=== PATIENT | male | born 1940 | race Caucasian/White ===

== ENCOUNTER → 2018-02-27 08:11 | Outpatient (CLI) | payer MEDICARE, SELFPAY ==
[2018-02-27 09:06] LABS: Alanine Aminotransferase 48 IU/L (21-72); Albumin 4.3 g/dL (3.5-5.0); Albumin Globulin Ratio 1.6 (1.0-2.8); Alkaline Phosphatase 85 U/L (38-126); Aspartate Aminotransferase 32 IU/L (17-59); BUN Creatinine Ratio 21.1 (6-22); Bilirubin Total 0.4 mg/dL (0.2-1.3); Blood Urea Nitrogen 19 mg/dL (9-20); Calcium 9.3 mg/dL (8.4-10.2); Carbon Dioxide 26 mmol/L (22-32); Chloride 104 mmol/L (98-107); Cholesterol 154 mg/dL (140-199); Estimated Glomerular Filt Rate > 60.0 mL/min (>60); Globulin 2.7 g/dL (1.7-4.1); Glucose 124 mg/dL (80-110); HDL Cholesterol 37 mg/dL (40-60); HEMOLYSIS < 15 (0-50); LDL Cholesterol Calculated 82 mg/dL (<100); Potassium 4.6 mmol/L (3.4-5.1); Sodium 139 mmol/L (137-145); Triglycerides 174 mg/dL (35-150)
[2018-02-27 09:35] LABS: Prostate Specific Antigen Scrn 2.26 ng/mL (0.1-4.0)
[2018-02-27 10:16] LABS: Creatinine Urine Random 106.3 mg/dL
[2018-02-27 10:21] LABS: Microalbumi Creatinin Ratio Ur 74.3 ug/mg CR (<30); Microalbumin Urine Random 7.9 mg/dL (0-1.6)
== END ==
PROVIDERS: Visit Provider Physician Assistant
DX: E78.5 Hyperlipidemia, unspecified (principal); I10 Essential (primary) hypertension; Z12.5 Encounter for screening for malignant neoplasm of prostate
CPT/HCPCS: 36415; 80053; 80061; 82043; 82570; G0103

== ENCOUNTER → 2018-03-01 09:08 | Outpatient (CLI) | payer MEDICARE, SELFPAY ==
[2018-03-01 21:23] LABS: Uric Acid 6.7 mg/dL (3.5-8.5)
== END ==
PROVIDERS: PCP Family Medicine; Visit Provider Physician Assistant
DX: E78.2 Mixed hyperlipidemia (principal); R73.01 Impaired fasting glucose; R80.9 Proteinuria, unspecified
CPT/HCPCS: 84550

== ENCOUNTER → 2018-04-05 09:36 | Outpatient (CLI) | payer MEDICARE, SELFPAY | PROVIDERS: PCP Physician Assistant; Visit Provider Physician Assistant | DX: Z12.11 Encounter for screening for malignant neoplasm of colon (principal) | CPT/HCPCS: 82274 ==

== ENCOUNTER → 2018-06-07 07:59 | Outpatient (CLI) | payer MEDICARE, SELFPAY ==
[2018-06-07 09:30] LABS: Blood Urea Nitrogen 16 mg/dL (9-20); Carbon Dioxide 25 mmol/L (22-32); Chloride 103 mmol/L (98-107); Cholesterol 175 mg/dL (140-199); Estimated Glomerular Filt Rate > 60.0 mL/min (>60); Glucose 130 mg/dL (80-110); HDL Cholesterol 43 mg/dL (40-60); HEMOLYSIS 15 (0-50); LDL Cholesterol Calculated 97 mg/dL (<100); Potassium 4.3 mmol/L (3.4-5.1); Sodium 137 mmol/L (137-145); Triglycerides 177 mg/dL (35-150)
[2018-06-07 09:32] LABS: Hemoglobin A1C% w Est Avg Glu 5.8 % (4.0-6.0)
[2018-06-07 09:56] LABS: Microalbumi Creatinin Ratio Ur 131.7 ug/mg CR (<30); Microalbumin Urine Random 16.2 mg/dL (0-1.6)
== END ==
PROVIDERS: PCP Physician Assistant; Visit Provider Physician Assistant
DX: E78.1 Pure hyperglyceridemia (principal); I10 Essential (primary) hypertension; R73.01 Impaired fasting glucose
CPT/HCPCS: 36415; 80048; 80061; 82043; 82570; 83036

== ENCOUNTER → 2018-09-09 08:55 | Outpatient (CLI) | payer MEDICARE, SELFPAY ==
[2018-09-09 11:51] LABS: Creatinine Urine Random 121.8 mg/dL
[2018-09-09 11:54] LABS: Microalbumi Creatinin Ratio Ur 82.9 ug/mg CR (<30); Microalbumin Urine Random 10.1 mg/dL (0-1.6)
== END ==
PROVIDERS: PCP Physician Assistant; Visit Provider Physician Assistant
DX: I10 Essential (primary) hypertension (principal)
CPT/HCPCS: 82043; 82570

== ENCOUNTER → 2018-12-29 07:52 | Outpatient (CLI) | payer MEDICARE, SELFPAY ==
[2018-12-29 08:29] LABS: Hemoglobin A1C% w Est Avg Glu 5.8 % (4.0-6.0)
[2018-12-29 09:00] LABS: Alanine Aminotransferase 35 IU/L (<50); Albumin 4.3 g/dL (3.5-5.0); Albumin Globulin Ratio 1.8 (1.0-2.8); Alkaline Phosphatase 76 U/L (38-126); Aspartate Aminotransferase 33 IU/L (17-59); Bilirubin Total 0.6 mg/dL (0.2-1.3); Blood Urea Nitrogen 17 mg/dL (9-20); Calcium 9.4 mg/dL (8.4-10.2); Carbon Dioxide 26 mmol/L (22-32); Chloride 105 mmol/L (98-107); Cholesterol 167 mg/dL (140-199); Estimated Glomerular Filt Rate > 60.0 mL/min (>60); Globulin 2.4 g/dL (1.7-4.1); Glucose 129 mg/dL (80-110); HDL Cholesterol 42 mg/dL (40-60); HEMOLYSIS < 15 (0-50); LDL Cholesterol Calculated 97 mg/dL (<100); Potassium 4.8 mmol/L (3.4-5.1); Sodium 139 mmol/L (137-145); Total Protein 6.7 g/dL (6.3-8.2); Triglycerides 138 mg/dL (35-150)
== END ==
PROVIDERS: PCP Physician Assistant; Visit Provider Physician Assistant
DX: E78.1 Pure hyperglyceridemia (principal); I10 Essential (primary) hypertension; R73.01 Impaired fasting glucose
CPT/HCPCS: 36415; 80053; 80061; 83036

== ENCOUNTER → 2019-10-12 06:55 | Outpatient (CLI) | payer MEDICARE, SELFPAY ==
[2019-10-12 08:49] LABS: Alanine Aminotransferase 32 IU/L (<50); Albumin Globulin Ratio 1.3 (1.0-2.8); Alkaline Phosphatase 86 U/L (38-126); Aspartate Aminotransferase 35 IU/L (17-59); BUN Creatinine Ratio 18.6 (6-22); Bilirubin Total 0.7 mg/dL (0.2-1.3); Blood Urea Nitrogen 18 mg/dL (9-20); Calcium 8.9 mg/dL (8.4-10.2); Carbon Dioxide 27 mmol/L (22-32); Chloride 104 mmol/L (98-107); Estimated Glomerular Filt Rate > 60.0 mL/min (>60); Glucose 129 mg/dL (80-110); HEMOLYSIS < 15 (0-50); Potassium 4.2 mmol/L (3.4-5.1); Sodium 137 mmol/L (137-145)
[2019-10-14 14:15] LABS: Cholesterol 154 mg/dL (140-199); HDL Cholesterol 39 mg/dL (40-60); LDL Cholesterol Calculated 99 mg/dL (<100); Triglycerides 79 mg/dL (35-150)
== END ==
PROVIDERS: PCP Registered Nurse Diabetes Educator; Referring Provider Registered Nurse Diabetes Educator; Visit Provider Registered Nurse Diabetes Educator
DX: E78.1 Pure hyperglyceridemia (principal); I10 Essential (primary) hypertension; E11.9 Type 2 diabetes mellitus without complications
CPT/HCPCS: 36415; 80053; 80061

== ENCOUNTER → 2019-12-09 06:58 | Outpatient (CLI) | payer MEDICARE, SELFPAY ==
[2019-12-09 08:43] LABS: Add Manual Diff / Slide Review NO; Basophils Absolute Auto 0 /uL (0-100); Basophils Percent Auto 0.5 % (0-2); Eosinophils Absolute Auto 200 /uL (0-450); Eosinophils Percent Auto 2.7 % (2-4); Hematocrit 41.4 % (41-53); Hemoglobin 14.3 g/dL (13.5-17.5); Lymphocytes Absolute Auto 1900 /uL (1100-4500); Mean Corpuscular HGB Conc 34.5 % (30-36); Mean Corpuscular Volume 92.8 fL (80-100); Monocytes Absolute Auto 700 /uL (0-900); Monocytes Percent Auto 9.7 % (3-14); Neutrophils Absolute Auto 4200 /uL (1500-7000); Neutrophils Percent Auto 60.1 % (50-75); Platelet Count 290 X10^3/uL (150-400); Red Blood Cell Count 4.46 X10^6/uL (4.5-5.9); Red Cell Distribution Width 12.3 % (11.6-14.8)
[2019-12-09 09:47] LABS: TSH w/ Reflex to FT4 1.93 uIU/mL (0.47-4.68)
[2019-12-09 10:00] LABS: Creatinine Urine Random 124.6 mg/dL
[2019-12-09 10:04] LABS: Microalbumi Creatinin Ratio Ur 37.7 ug/mg CR (<30); Microalbumin Urine Random 4.7 mg/dL (0-1.6)
[2019-12-12 13:06] LABS: Fecal Immunochemical Test Negative (Negative)
== END ==
PROVIDERS: PCP Registered Nurse Diabetes Educator; Referring Provider Registered Nurse Diabetes Educator; Visit Provider Registered Nurse Diabetes Educator
DX: Z12.11 Encounter for screening for malignant neoplasm of colon (principal); E11.9 Type 2 diabetes mellitus without complications; I10 Essential (primary) hypertension
CPT/HCPCS: 36415; 82043; 82274; 82570; 83036; 84443; 85025

== ENCOUNTER → 2020-01-12 11:48 | Outpatient (CLI) | payer MEDICARE, SELFPAY ==
[2020-01-12 12:50] LABS: Add Manual Diff / Slide Review NO; Basophils Absolute Auto 0 /uL (0-100); Basophils Percent Auto 0.3 % (0-2); Eosinophils Absolute Auto 100 /uL (0-450); Eosinophils Percent Auto 0.9 % (2-4); Hematocrit 40.9 % (41-53); Hemoglobin 14.3 g/dL (13.5-17.5); Lymphocytes Absolute Auto 1600 /uL (1100-4500); Lymphocytes Percent Auto 14.8 % (25-40); Mean Corpuscular HGB Conc 34.9 % (30-36); Mean Corpuscular Hemoglobin 32.1 PG (26-34); Monocytes Absolute Auto 1000 /uL (0-900); Monocytes Percent Auto 8.8 % (3-14); Neutrophils Absolute Auto 8300 /uL (1500-7000); Neutrophils Percent Auto 75.2 % (50-75); Platelet Count 287 X10^3/uL (150-400); Red Blood Cell Count 4.45 X10^6/uL (4.5-5.9); Red Cell Distribution Width 12.5 % (11.6-14.8); White Blood Cell Count 11.1 X10^3/uL (4.5-11.0)
[2020-01-12 13:09] LABS: Alanine Aminotransferase 26 IU/L (<50); Albumin 4.3 g/dL (3.5-5.0); Albumin Globulin Ratio 1.3 (1.0-2.8); Alkaline Phosphatase 75 U/L (38-126); Aspartate Aminotransferase 26 IU/L (17-59); BUN Creatinine Ratio 18.6 (6-22); Blood Urea Nitrogen 18 mg/dL (9-20); Calcium 9.4 mg/dL (8.4-10.2); Carbon Dioxide 29 mmol/L (22-32); Chloride 102 mmol/L (98-107); Estimated Glomerular Filt Rate > 60.0 mL/min (>60); Globulin 3.2 g/dL (1.7-4.1); Glucose 111 mg/dL (80-110); HEMOLYSIS < 15 (0-50); Potassium 4.7 mmol/L (3.4-5.1); Sodium 136 mmol/L (137-145); Total Protein 7.5 g/dL (6.3-8.2)
[2020-01-12 13:36] LABS: Prostate Specific Antigen 2.88 ng/mL (0.10-4.00)
== END ==
PROVIDERS: PCP Registered Nurse Diabetes Educator; Referring Provider Registered Nurse; Visit Provider Registered Nurse
DX: N40.1 Benign prostatic hyperplasia with lower urinary tract symptoms (principal); R39.198 Other difficulties with micturition
CPT/HCPCS: 36415; 80053; 84153; 85025; 87086

== ENCOUNTER 2020-05-14 10:02 | Emergency (ER) | payer MEDICARE, SELFPAY ==
[2020-05-14 10:04] VITALS: BP 213/97; PULSE 56; RESP 16; TEMP 36.5; O2SAT 99
--- NOTE | 2020-05-14 10:14 | DI.RAD.S_ITS ---
PROCEDURE: XR CHEST 1V INDICATIONS: chest pain TECHNIQUE: One view of the chest was acquired. COMPARISON: [facility], , CHEST 1 VIEW, 10/06/2016, 10:06. FINDINGS: Surgical changes and devices: Fusion hardware in lower cervical spine is seen. Lungs and pleura: Lungs are clear. No pleural effusions or pneumothorax. Mediastinum: Mild aortic arch calcification is seen. Heart size is enlarged. Bones and chest wall: Old healed right posterior 7th and 8th rib fractures are seen.. Overlying soft tissues appear unremarkable. IMPRESSION: No acute cardiopulmonary pathology. Old healed right posterior 7th and 8th rib fractures. Prior lower cervical spine fusion. Dictated by: Ian Hammond M.D. on 05/14/2020 at 10:37 Approved by: aIn Hammond M.D. on 05/14/2020 at 10:38
--- NOTE | 2020-05-14 10:22 | ED.GENADULT ---
HPI - General Adult General Chief complaint: Hypertension Stated complaint: Sent over by PCP for blood pressure check Time Seen by Provider: 05/14/20 10:13 Source: patient Mode of arrival: Ambulatory Limitations: no limitations History of Present Illness HPI narrative: Patient is a 79-year-old male with history of hypertension presenting with hypertension. He says he has been monitoring his blood pressure since the of the year taking it a couple times a week it is slowly been on the rise. His blood pressure usually is 150/80 however he has had multiple readings with systolic of 180 even 1 with a systolic of 200 is currently 213/97. He states he is completely asymptomatic and feels fine. He denies any headache chest pain shortness of breath numbness tingling or weakness nausea or vomiting. She has appointment with his PCP this afternoon in regards to his blood pressure. Related Data Home Medications Medication Instructions Recorded Confirmed multivitamin [Multiple Vitamins] 1 tab PO QDAY #0 09/03/10 05/14/20 omeprazole 20 mg PO QDAY #0 10/06/16 05/14/20 amlodipine 10 mg PO QPM 05/14/20 05/14/20 atenolol 50 mg PO QAM 05/14/20 05/14/20 ibuprofen-diphenhydramine HCl 1 cap PO BEDTIME 05/14/20 05/14/20 losartan 50 mg PO QPM 05/14/20 05/14/20 Allergies Allergy/AdvReac Type Severity Reaction Status Date / Time lisinopril AdvReac Intermediate Cough Verified 05/14/20 10:08 Review of Systems Review of Systems Narrative: GENERAL: Denies chills, fatigue, malaise, fever, sweats, travel HEENT: Denies sinus pain, ear pain, sore throat, difficulty swallowing, neck pain RESPIRATORY: Denies dyspnea, cough, wheezing, hemoptysis, sputum. CARDIOVASCULAR: Denies chest pain, palpitations, orthopnea, edema GASTROINTESTINAL: Denies nausea, vomiting, abdominal pain, diarrhea, constipation, melena. : Denies dysuria, frequency, incontinence, hematuria, urinary retention, flank pain. MUSCULOSKELETAL: Denies weakness, joint pain, or bony pain SKIN: No rash, no erythema, no pruritus NEUROLOGIC: Denies weakness, dizziness, headache, numbness, change in speech, confusion PSYCHIATRIC: No concerning psychosocial issues. 12 point review of systems is negative except for those stated above and HPI Patient History Medical History Diabetes mellitus type 2, diet-controlled Essential (primary) hypertension (02/26/15) Surgical History History of hip replacement History of hip replacement Status post knee surgery Family History Child Thyroid cancer Social History Smoking Status: Never smoker second hand exposure: No alcohol intake: current substance use type: does not use Smoking Status: Never smoker alcohol intake frequency: 0-2 drinks per day Substance Use Type: does not use Exam Initial Vital Signs Initial Vital Signs: Vital Signs Temperature 97.7 F 05/14/20 10:04 Pulse Rate 56 L 05/14/20 10:04 Respiratory Rate 16 05/14/20 10:04 Blood Pressure 213/97 H 05/14/20 10:04 Pulse Oximetry 99 05/14/20 10:04 GENERAL: Well-appearing, well-nourished and in no acute distress. HEENT: Head atraumatic,EOMI, pupils reactive, face symmetric, moist mucous membranes CARDIOVASCULAR: Regular rate and rhythm without murmurs, rubs or gallops. RESPIRATORY: Breath sounds equal bilaterally, no wheezes rales or rhonchi. ABDOMEN: Soft, nontender. Normoactive bowel sounds all 4 quadrants. No guarding or rebound. EXTREMITIES: Normal range of motion, no clubbing or edema. Neurovascularly intact NEUROLOGICAL: Alert and oriented x4.Normal gait and speech. Cranial nerves II through XII grossly intact. SKIN: Warm, dry, no laceration, no petechiae, no rashes or lesions. Course Orders Ordered: ED Orders 05/14/20 10:14 XR chest 1V Stat EKG-12 Lead Stat 05/14/20 10:26 Complete Blood Count AUTO DIFF Stat Comprehensive Metabolic Panel Stat Lipase Stat Troponin & CK Cardiac Panel Stat Vital Signs Vital signs: Vital Signs - 8 hr 05/14/20 10:04 05/14/20 11:00 05/14/20 11:30 Temperature 97.7 F Pulse Rate 56 L 48 L 45 L Respiratory Rate 16 14 15 Blood Pressure 213/97 H Pulse Oximetry 99 97 96 05/14/20 11:35 05/14/20 12:00 05/14/20 12:01 Temperature Pulse Rate 48 L 48 L 47 L Respiratory Rate 14 10 L 12 Blood Pressure 162/87 H 194/88 H Pulse Oximetry 94 97 97 Medical Decision Making Lab Data Lab results reviewed: Yes I reviewed the patient's lab results. Result diagrams: 05/14/20 10:26 05/14/20 10: Labs: Lab Results 05/14/20 05/14/20 Range/Units 10:26 10:26 WBC 8.1 (4.5-11.0) X10^3/uL RBC 4.42 L (4.5-5.9) X10^6/uL Hgb 14.3 (13.5-17.5) g/dL Hct 41.2 (41-53) % MCV 93.1 (80-100) fL MCH 32.4 (26-34) PG MCHC 34.8 (30-36) % RDW 13.2 (11.6-14.8) % Plt Count 299 (150-400) X10^3/uL Neut % (Auto) 63.4 (50-75) % Lymph % (Auto) 24.6 L (25-40) % [place] % (Auto) 9.0 (3-14) % Eos % (Auto) 2.2 (2-4) % Baso % (Auto) 0.8 (0-2) % Neut # (Auto) 5100 (5390-2858) /uL Lymph # (Auto) 2000 (3281-5525) /uL [place] # (Auto) 700 (0-900) /uL Eos # (Auto) 200 (0-450) /uL Baso # (Auto) 100 (0-100) /uL Sodium 137 (137-145) mmol/L Potassium 4.8 (3.4-5.1) mmol/L Chloride 103 (98-107) mmol/L Carbon Dioxide 26 (22-32) mmol/L BUN 19 (9-20) mg/dL Creatinine 0.97 (0.66-1.25) mg/dL Estimated GFR > 60.0 (>60) mL/min BUN/Creatinine Ratio 19.6 (6-22) Glucose 104 (80-110) mg/dL Calcium 9.4 (8.4-10.2) mg/dL Total Bilirubin 0.6 (0.2-1.3) mg/dL AST 29 (17-59) IU/L ALT 27 (<50) IU/L Alkaline Phosphatase 93 (38-126) U/L Total Creatine Kinase 70 (55-170) U/L CK-MB (CK-2) TNP CK-MB (CK-2) Rel Index TNP Troponin I < 0.012 (0.01-0.034) ng/mL Total Protein 7.5 (6.3-8.2) g/dL Albumin 4.4 (3.5-5.0) g/dL Globulin 3.1 (1.7-4.1) g/dL Albumin/Globulin Ratio 1.4 (1.0-2.8) Lipase 67 (23-300) U/L Imaging Data Chest x-ray: Radiologist's Impression: PROCEDURE: XR CHEST 1V INDICATIONS: chest pain TECHNIQUE: One view of the chest was acquired. COMPARISON: [facility], CHEST 1 VIEW, 10/06/2016, 10:06. FINDINGS: Surgical changes and devices: Fusion hardware in lower cervical spine is seen. Lungs and pleura: Lungs are clear. No pleural effusions or pneumothorax. Mediastinum: Mild aortic arch calcification is seen. Heart size is enlarged. Bones and chest wall: Old healed right posterior 7th and 8th rib fractures are seen.. Overlying soft tissues appear unremarkable. IMPRESSION: No acute cardiopulmonary pathology. Old healed right posterior 7th and 8th rib fractures. Prior lower cervical spine fusion. Dictated by: Ian Hammond M.D. on 05/14/2020 at 10:37 ECG Data Attestation: I personally reviewed and interpreted this ECG as follows: Interpretation: Normal sinus rhythm rate 51 p.r. interval 6 QRS 154 QTC is [address] changes or T-wave inversions 1st degree AV block noted from previous EKG in 2018 MDM Narrative Medical decision making narrative: Patient's blood pressure has improved on the emergency department at any intervention. No sign of end-organ damage she is completely asymptomatic. He has an appointment with his PCP later today to discuss blood pressure medication. At this time I recommend he keep this appointment. Discharge Plan Departure Patient Disposition: Home Clinical Impression: Essential (primary) hypertension Instructions: DI for High Blood Pressure Activity Restrictions/Additional Instructions: *You have been diagnosed with hypertension *What to do: Please follow-up with primary care provider blood pressure medication will need to be adjusted. *Continue to take medications as directed *Follow up with your primary care provider in 2-3 days *Return to ER if you should have shortness of breath, headache, chest pain or any new, worsening or concerning symptoms Prescriptions: No Action multivitamin [Multiple Vitamins] 1 EACH tablet 1 tab PO QDAY Qty: 0 RF: 0 omeprazole 20 MG capsule,delayed release(DR/EC) 20 mg PO QDAY Qty: 0 RF: 0 ibuprofen-diphenhydramine HCl 200-25 mg Capsule 1 cap PO BEDTIME RF: 0 losartan 50 mg tablet 50 mg PO QPM RF: 0 amlodipine 5 mg tablet 10 mg PO QPM RF: 0 atenolol 50 mg tablet 50 mg PO QAM RF: 0 Referrals: Niko Childress ARNP [Primary Care Provider] -
[2020-05-14 10:33] LABS: Add Manual Diff / Slide Review NO; Basophils Absolute Auto 100 /uL (0-100); Basophils Percent Auto 0.8 % (0-2); Eosinophils Absolute Auto 200 /uL (0-450); Eosinophils Percent Auto 2.2 % (2-4); Hematocrit 41.2 % (41-53); Hemoglobin 14.3 g/dL (13.5-17.5); Lymphocytes Absolute Auto 2000 /uL (1100-4500); Lymphocytes Percent Auto 24.6 % (25-40); Mean Corpuscular HGB Conc 34.8 % (30-36); Mean Corpuscular Hemoglobin 32.4 PG (26-34); Mean Corpuscular Volume 93.1 fL (80-100); Monocytes Absolute Auto 700 /uL (0-900); Neutrophils Absolute Auto 5100 /uL (1500-7000); Neutrophils Percent Auto 63.4 % (50-75); Platelet Count 299 X10^3/uL (150-400); Red Blood Cell Count 4.42 X10^6/uL (4.5-5.9); Red Cell Distribution Width 13.2 % (11.6-14.8); White Blood Cell Count 8.1 X10^3/uL (4.5-11.0)
[2020-05-14 10:47] LABS: Alanine Aminotransferase 27 IU/L (<50); Albumin 4.4 g/dL (3.5-5.0); Albumin Globulin Ratio 1.4 (1.0-2.8); Alkaline Phosphatase 93 U/L (38-126); Aspartate Aminotransferase 29 IU/L (17-59); BUN Creatinine Ratio 19.6 (6-22); Bilirubin Total 0.6 mg/dL (0.2-1.3); Blood Urea Nitrogen 19 mg/dL (9-20); Calcium 9.4 mg/dL (8.4-10.2); Carbon Dioxide 26 mmol/L (22-32); Chloride 103 mmol/L (98-107); Creatine Kinase 70 U/L (55-170); Estimated Glomerular Filt Rate > 60.0 mL/min (>60); Globulin 3.1 g/dL (1.7-4.1); Glucose 104 mg/dL (80-110); HEMOLYSIS 31 (0-50); Lipase 67 U/L (23-300); Potassium 4.8 mmol/L (3.4-5.1); Sodium 137 mmol/L (137-145); Total Protein 7.5 g/dL (6.3-8.2)
[2020-05-14 10:58] LABS: Troponin I < 0.012 ng/mL (0.01-0.034)
[2020-05-14 11:00] VITALS: PULSE 48; RESP 14; O2SAT 97
[2020-05-14 11:30] VITALS: PULSE 45; RESP 15; O2SAT 96
[2020-05-14 11:35] VITALS: BP 162/87; PULSE 48; RESP 14; O2SAT 94
[2020-05-14 12:00] VITALS: PULSE 48; RESP 10; O2SAT 97
[2020-05-14 12:01] VITALS: BP 194/88; PULSE 47; RESP 12; O2SAT 97
== END 2020-05-14 12:42 | disposition home or self-care (01) ==
PROVIDERS: Emergency Provider Emergency Medicine; PCP Registered Nurse Diabetes Educator; Referring Provider Emergency Medicine
DX: I10 Essential (primary) hypertension (principal); R07.9 Chest pain, unspecified
CPT/HCPCS: 71045; 80053; 82550; 83690; 84484; 85025; 93005; 93010; 99281; 99284

== ENCOUNTER → 2020-06-11 06:59 | Outpatient (CLI) | payer MEDICARE, SELFPAY ==
[2020-06-11 08:41] LABS: Blood Urea Nitrogen 22 mg/dL (9-20); Calcium 9.6 mg/dL (8.4-10.2); Carbon Dioxide 24 mmol/L (22-32); Chloride 102 mmol/L (98-107); Estimated Glomerular Filt Rate > 60.0 mL/min (>60); Glucose 119 mg/dL (80-110); HEMOLYSIS < 15 (0-50); Sodium 136 mmol/L (137-145)
== END ==
PROVIDERS: PCP Registered Nurse Diabetes Educator; Referring Provider Registered Nurse Diabetes Educator; Visit Provider Registered Nurse Diabetes Educator
DX: I10 Essential (primary) hypertension (principal)
CPT/HCPCS: 36415; 80048

== ENCOUNTER → 2020-06-13 07:10 | Outpatient (CLI) | payer MEDICARE, SELFPAY ==
[2020-06-13 08:11] LABS: Erythrocyte Sedimentation Rate 9 MM/HR (0-15)
[2020-06-13 08:12] LABS: C-Reactive Protein Quant 1.4 mg/dL (<1.0)
== END ==
PROVIDERS: PCP Registered Nurse Diabetes Educator; Referring Provider Orthopaedic Surgery Adult Reconstructive Orthopaedic Surgery; Visit Provider Orthopaedic Surgery Adult Reconstructive Orthopaedic Surgery
DX: M25.559 Pain in unspecified hip (principal); Z96.643 Presence of artificial hip joint, bilateral
CPT/HCPCS: 36415; 85651; 86140

== ENCOUNTER → 2020-06-20 17:27 | Outpatient (CLI) | payer MEDICARE, SELFPAY ==
--- NOTE | 2020-06-20 17:30 | DI.MRI.S_ITS ---
PROCEDURE: MR HIP LT WO CON INDICATIONS: Pain in left hip TECHNIQUE: Noncontrast coronal T1 spin echo and STIR through the bony pelvis. Coronal and axial T2 fast spin echo with fat saturation, sagittal T1 spin echo, and oblique axial T2 fast spin echo with fat saturation through the hip. COMPARISON: [facility], CT, ABDOMEN/PELVIS WITH CONTRAST, 10/22/2016, 12:13. [facility], CR, XR PELVIS WITH LATERAL HIP LEFT, 06/12/2020, 9:34. FINDINGS: Image quality: There is magnetic susceptibility artifact from patient's hip prostheses limiting evaluation. Bones and joints: Bilateral hip joint prostheses are present with associated periarticular magnetic susceptibility artifact limiting evaluation. Bone marrow of the pelvic ring and proximal femurs otherwise demonstrate normal overall signal. No definite intraosseous lesions or fractures. There are periarticular bony erosions around the right hip related to a right hip effusion. The visualized lower lumbar spine demonstrates mild to moderate degenerative disc disease which is incompletely characterized on the current study. No definite left hip joint effusion. Limited evaluation of the right hip demonstrates a moderate effusion with internal filling defects suggestive of synovitis. Tendons and ligaments: The gluteus medius and minimus tendons appear intact, without associated muscle atrophy. A small amount of loculated fluid is demonstrated posterior to the right greater trochanter measuring approximately 1.1 x 1.0 cm in transverse dimension and 3.5 cm in craniocaudal extent. Findings are suggestive of a small bursal fluid collection. Limited evaluation of the right hip on coronal images demonstrates a small collection measuring up to 3.9 cm along the right greater trochanter also suggestive of bursitis. The proximal iliotibial band also appears grossly intact. The left iliopsoas tendon appears intact, without adjacent bursal fluid collections or evidence for impingement syndrome. The origin of the hamstring tendon is intact at the ischial tuberosity, as well as the associated sacrotuberous ligament. The straight and reflected heads of the rectus femoris muscle origin appear intact, as well as the conjoint tendon. Soft tissues: Visualized muscles demonstrate normal bulk and internal signal. Quadratus femoris muscle demonstrates no internal edema to suggest ischiofemoral impingement. The proximal sciatic neurovascular bundle appears normal adjacent to the hamstring tendons. No free pelvic fluid. There is a loculated fluid collection within the right hemipelvis medial to the ileum and along the iliacus muscle seen on coronal images, measuring up to approximately 7.6 x 3.8 cm. There are heterogeneous internal filling defects including a few low signal intensity foci measuring up to 1.4 cm. There is mild adjacent soft tissue edema. There is also a loculated fluid collection anterior to the right hip measuring up to approximately 11.5 cm in craniocaudal extent by approximately 2.3 cm in transverse dimension with multiple internal filling defects suggestive of a bursal collection which is incompletely evaluated on the current study. There is mild bladder wall thickening and trabeculation suggesting sequelae of chronic bladder outlet obstruction. There is heterogeneous enlargement of the prostate. Diverticulosis is present within the visualized sigmoid colon. No intraperitoneal free fluid in the pelvis. IMPRESSION: 1. Bilateral hip prostheses with associated magnetic susceptibility artifact limiting evaluation. No definite acute fractures. 2. Small fluid collection demonstrated along the left greater trochanter suggestive of bursitis. A slightly larger collection is demonstrated adjacent to the right greater trochanter also likely representing a bursal collection. The differential includes postsurgical fluid collections such as a seroma. 3. Moderate-sized right hip joint effusion with internal filling defects suggestive of synovitis. There are adjacent areas of associated periarticular bony erosions. 4. Lobulated fluid collection within the right hemipelvis along the right iliacus muscle as well as a loculated collection anterior to the right hip. Findings are incompletely evaluated on the current study but likely correspond to heterogeneous collections seen on the prior CT and are suggestive of bursitis. Dictated by: Parveen Hedrick M.D. on 06/21/2020 at 10:41 Approved by: Parveen Hedrick M.D. on 06/21/2020 at 11:11
== END ==
PROVIDERS: PCP Registered Nurse Diabetes Educator; Referring Provider Orthopaedic Surgery Adult Reconstructive Orthopaedic Surgery; Visit Provider Orthopaedic Surgery Adult Reconstructive Orthopaedic Surgery
DX: M25.552 Pain in left hip (principal); M25.452 Effusion, left hip
CPT/HCPCS: 73721

== ENCOUNTER → 2021-02-07 07:01 | Outpatient (CLI) | payer MEDICARE, SELFPAY ==
[2021-02-07 08:20] LABS: Hemoglobin A1C% w Est Avg Glu 5.8 % (4.0-6.0)
[2021-02-07 08:38] LABS: Alanine Aminotransferase 23 IU/L (<50); Albumin 4.4 g/dL (3.5-5.0); Albumin Globulin Ratio 1.4 (1.0-2.8); Alkaline Phosphatase 90 U/L (38-126); Aspartate Aminotransferase 33 IU/L (17-59); BUN Creatinine Ratio 21.1 (6-22); Bilirubin Total 0.6 mg/dL (0.2-1.3); Blood Urea Nitrogen 24 mg/dL (9-20); Calcium 9.1 mg/dL (8.4-10.2); Carbon Dioxide 26 mmol/L (22-32); Chloride 102 mmol/L (98-107); Cholesterol 208 mg/dL (140-199); Estimated Glomerular Filt Rate > 60.0 mL/min (>60); Globulin 3.1 g/dL (1.7-4.1); Glucose 133 mg/dL (80-110); HDL Cholesterol 25 mg/dL (40-60); Potassium 4.2 mmol/L (3.4-5.1); Sodium 136 mmol/L (137-145); Total Protein 7.5 g/dL (6.3-8.2)
[2021-02-07 08:39] LABS: Creatinine Urine Random 113.7 mg/dL
[2021-02-07 08:45] LABS: Microalbumi Creatinin Ratio Ur 36.9 ug/mg CR (<30); Microalbumin Urine Random 4.2 mg/dL (0-1.6)
[2021-02-07 08:57] LABS: Triglycerides 848 mg/dL (35-150)
[2021-02-07 08:58] LABS: HEMOLYSIS 71 (0-50)
[2021-02-07 09:18] LABS: Hematocrit 40.5 % (41-53); Hemoglobin 14.8 g/dL (13.5-17.5); Mean Corpuscular HGB Conc 36.4 % (30-36); Mean Corpuscular Hemoglobin 33.4 PG (26-34); Mean Corpuscular Volume 91.6 fL (80-100); Platelet Count 281 X10^3/uL (150-400); Red Blood Cell Count 4.42 X10^6/uL (4.5-5.9); Red Cell Distribution Width 12.1 % (11.6-14.8); White Blood Cell Count 6.9 X10^3/uL (4.5-11.0)
== END ==
PROVIDERS: PCP Registered Nurse Diabetes Educator; Referring Provider Registered Nurse Diabetes Educator; Visit Provider Registered Nurse Diabetes Educator
DX: E11.9 Type 2 diabetes mellitus without complications (principal); I10 Essential (primary) hypertension; E78.5 Hyperlipidemia, unspecified
CPT/HCPCS: 36415; 80053; 80061; 82043; 82570; 83036; 84443; 85027

== ENCOUNTER → 2021-02-21 07:00 | Outpatient (CLI) | payer MEDICARE, SELFPAY ==
[2021-02-21 09:12] LABS: Cholesterol 198 mg/dL (140-199); HDL Cholesterol 36 mg/dL (40-60); LDL Cholesterol Calculated 122 mg/dL (<100); Triglycerides 202 mg/dL (35-150)
== END ==
PROVIDERS: PCP Registered Nurse Diabetes Educator; Referring Provider Registered Nurse Diabetes Educator; Visit Provider Registered Nurse Diabetes Educator
DX: E78.5 Hyperlipidemia, unspecified (principal)
CPT/HCPCS: 36415; 80061

== ENCOUNTER → 2021-04-09 06:54 | Outpatient (CLI) | payer MEDICARE, SELFPAY ==
[2021-04-09 08:09] LABS: Cholesterol 183 mg/dL (140-199); HDL Cholesterol 38 mg/dL (40-60); LDL Cholesterol Calculated 88 mg/dL (<100); Triglycerides 283 mg/dL (35-150)
== END ==
PROVIDERS: PCP Registered Nurse Diabetes Educator; Referring Provider Internal Medicine Cardiovascular Disease; Visit Provider Internal Medicine Cardiovascular Disease
DX: E11.9 Type 2 diabetes mellitus without complications (principal)
CPT/HCPCS: 36415; 80061

== ENCOUNTER → 2021-05-29 06:58 | Outpatient (CLI) | payer MEDICARE, SELFPAY ==
[2021-05-29 09:02] LABS: Cholesterol 136 mg/dL (140-199); HDL Cholesterol 50 mg/dL (40-60); LDL Cholesterol Calculated 69 mg/dL (<100); Triglycerides 87 mg/dL (35-150)
== END ==
PROVIDERS: PCP Registered Nurse Diabetes Educator; Referring Provider Internal Medicine Cardiovascular Disease; Visit Provider Internal Medicine Cardiovascular Disease
DX: E11.9 Type 2 diabetes mellitus without complications (principal)
CPT/HCPCS: 36415; 80061

== ENCOUNTER → 2022-01-10 11:30 | Outpatient (CLI) | payer MEDICARE, SELFPAY ==
--- NOTE | 2022-01-10 | DI.MRI.S_ITS ---
PROCEDURE: MR LUMBAR SPINE WO CON INDICATIONS: SPINAL STENOSIS OF LUMBAR REGION TECHNIQUE: Noncontrast sagittal T1 spin echo and T2 fast echo, sagittal STIR, and T2 fast spin echo through the lumbar spine. In cases with scoliosis, additional coronal T2 fast spin echo may be performed. COMPARISON: None. FINDINGS: Image quality: Excellent. Alignment and Curvature: There is normal bony alignment. Bone Marrow: Edematous degenerative Modic type 1 endplate changes noted involving at T12-L1 and L4-5 Spinal Cord: Conus medullaris terminates at the L1 level. Visualized cord demonstrates normal signal and size. 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 T12-L1: Disc space is maintained. No central or foraminal stenosis L1-L2: Disc space narrowing with circumferential disc bulge and hypertrophic facet joints. Mild central stenosis. Moderate right and no left foraminal stenosis L2-L3: Disc space narrowing with circumferential disc bulge and hypertrophic facet joints results in moderate central stenosis. Moderate bilateral foraminal stenosis L3-L4: Disc space narrowing and circumferential disc bulge with hypertrophic facet joints results in moderate central stenosis. Moderate left and mild right foraminal stenosis L4-L5: Disc space narrowing with circumferential disc bulge hypertrophic facet joints and ligamentum flavum laxity combined result in severe central stenosis. Severe bilateral foraminal stenosis L5-S1: Disc space is relatively preserved. Circumferential disc bulge with mild central stenosis. Mild bilateral foraminal stenosis IMPRESSION: 1. Multilevel degenerative disc disease and arthropathy results in varying degrees of central and foraminal stenosis including severe central and foraminal stenosis at L4-5 Approved by: Tyson Olivas M.D. on 01/10/2022 at 13:05
== END ==
PROVIDERS: PCP Registered Nurse Diabetes Educator; Referring Provider Orthopaedic Surgery Orthopaedic Surgery of the Spine; Visit Provider Orthopaedic Surgery Orthopaedic Surgery of the Spine
DX: M48.061 Spinal stenosis, lumbar region without neurogenic claudication (principal); M51.36 Other intervertebral disc degeneration, lumbar region; M47.816 Spondylosis without myelopathy or radiculopathy, lumbar region
CPT/HCPCS: 72148

== ENCOUNTER → 2022-05-30 06:56 | Outpatient (CLI) | payer MEDICARE, SELFPAY ==
[2022-05-30 08:59] LABS: Add Manual Diff / Slide Review NO; Basophils Absolute Auto 0 /uL (0-100); Basophils Percent Auto 0.8 % (0-2); Eosinophils Absolute Auto 200 /uL (0-450); Eosinophils Percent Auto 3.4 % (2-4); Hematocrit 38.4 % (41-53); Hemoglobin 13.4 g/dL (13.5-17.5); Lymphocytes Absolute Auto 1800 /uL (1100-4500); Lymphocytes Percent Auto 26.8 % (25-40); Mean Corpuscular HGB Conc 34.8 % (30-36); Mean Corpuscular Hemoglobin 32.1 PG (26-34); Mean Corpuscular Volume 92.3 fL (80-100); Monocytes Absolute Auto 500 /uL (0-900); Monocytes Percent Auto 8.2 % (3-14); Neutrophils Absolute Auto 4000 /uL (1500-7000); Neutrophils Percent Auto 60.8 % (50-75); Platelet Count 333 X10^3/uL (150-400); Red Blood Cell Count 4.16 X10^6/uL (4.5-5.9); Red Cell Distribution Width 12.6 % (11.6-14.8); White Blood Cell Count 6.5 X10^3/uL (4.5-11.0)
[2022-05-30 09:45] LABS: Alanine Aminotransferase 25 IU/L (<50); Albumin 3.9 g/dL (3.5-5.0); Albumin Globulin Ratio 1.4 (1.0-2.8); Alkaline Phosphatase 83 U/L (38-126); Aspartate Aminotransferase 26 IU/L (17-59); BUN Creatinine Ratio 21.6 (6-22); Bilirubin Total 0.5 mg/dL (0.2-1.3); Blood Urea Nitrogen 25 mg/dL (9-20); Carbon Dioxide 27 mmol/L (22-32); Chloride 100 mmol/L (98-107); Cholesterol 180 mg/dL (140-199); Estimated Glomerular Filt Rate > 60 mL/min (>60); Globulin 2.7 g/dL (1.7-4.1); Glucose 110 mg/dL (80-110); HDL Cholesterol 42 mg/dL (40-60); HEMOLYSIS < 15 (0-50); LDL Cholesterol Calculated 107 mg/dL (<100); Potassium 4.4 mmol/L (3.4-5.1); Sodium 135 mmol/L (137-145); Total Protein 6.6 g/dL (6.3-8.2); Triglycerides 153 mg/dL (35-150)
[2022-05-30 09:50] LABS: Creatinine Urine Random 69.6 mg/dL
[2022-05-30 09:54] LABS: Microalbumi Creatinin Ratio Ur 21.5 ug/mg CR (<30); Microalbumin Urine Random 1.5 mg/dL (0-1.6)
[2022-05-31 10:19] LABS: Labcorp Hemoglobin (Hb) A1c 6.3 % (4.8-5.6)
== END ==
PROVIDERS: PCP Registered Nurse Diabetes Educator; Referring Provider Registered Nurse Diabetes Educator; Visit Provider Registered Nurse Diabetes Educator
DX: E11.9 Type 2 diabetes mellitus without complications (principal); E78.1 Pure hyperglyceridemia; E78.5 Hyperlipidemia, unspecified; I10 Essential (primary) hypertension
CPT/HCPCS: 36415; 80053; 80061; 82043; 82570; 83036; 85025

== ENCOUNTER → 2023-02-10 08:36 | Outpatient (CLI) | payer MEDICARE, SELFPAY ==
--- NOTE | 2023-02-10 08:58 | DI.RAD.S_ITS ---
PROCEDURE: XR CHEST 2V INDICATIONS: chest congestion, cough x 3 days TECHNIQUE: 2 views of the chest were acquired. COMPARISON: [facility], [place], XR CHEST 1V, 05/14/2020, 10:22. [facility], [place], CHEST 1 VIEW, 10/06/2016, 10:06. FINDINGS: Surgical changes and devices: ACDF. Lungs and pleura: Lungs are clear. No pleural effusions or pneumothorax. Mediastinum: Mediastinal contours are normal. Heart size is normal. Bones and chest wall: No suspicious bony abnormalities. Soft tissues appear unremarkable. IMPRESSION: No acute cardiopulmonary abnormality is seen. Dictated by: Jaya Borjas M.D. on 02/10/2023 at 9:59 Approved by: Jaya Borjas M.D. on 02/10/2023 at 10:05
[2023-02-10 09:30] LABS: Influenza A - CEPHEID Flu A NEGATIVE (NEGATIVE); Influenza B - CEPHEID Flu B NEGATIVE (NEGATIVE); Respiratory Syncytial Virus POSITIVE (Negative)
[2023-02-10 09:46] LABS: COVID-19 CEPHEID 4-PLEX PCR Negative (Negative)
== END ==
PROVIDERS: PCP Registered Nurse Diabetes Educator; Referring Provider Physician Assistant; Visit Provider Physician Assistant
DX: R05.1 Acute cough (principal); J06.9 Acute upper respiratory infection, unspecified
CPT/HCPCS: 0241U; 71046

== ENCOUNTER → 2023-06-01 06:55 | Outpatient (CLI) | payer MEDICARE, SELFPAY ==
[2023-06-01 08:34] LABS: Hematocrit 42.6 % (41-53); Hemoglobin 14.6 g/dL (13.5-17.5); Mean Corpuscular HGB Conc 34.3 % (30-36); Mean Corpuscular Hemoglobin 32.2 PG (26-34); Mean Corpuscular Volume 93.9 fL (80-100); Platelet Count 356 X10^3/uL (150-400); Red Blood Cell Count 4.54 X10^6/uL (4.5-5.9); Red Cell Distribution Width 12.5 % (11.6-14.8); White Blood Cell Count 6.6 X10^3/uL (4.5-11.0)
[2023-06-01 08:49] LABS: Hemoglobin A1C% w Est Avg Glu 5.9 % (4.0-6.0)
[2023-06-01 09:05] LABS: Alanine Aminotransferase 27 IU/L (<50); Albumin 4.1 g/dL (3.5-5.0); Albumin Globulin Ratio 1.4 (1.0-2.8); Alkaline Phosphatase 91 U/L (38-126); Aspartate Aminotransferase 29 IU/L (17-59); BUN Creatinine Ratio 21.5 (6-22); Bilirubin Total 0.7 mg/dL (0.2-1.3); Blood Urea Nitrogen 26 mg/dL (9-20); Calcium 9.5 mg/dL (8.4-10.2); Carbon Dioxide 24 mmol/L (22-32); Chloride 103 mmol/L (98-107); Cholesterol 179 mg/dL (140-199); Estimated Glomerular Filt Rate 60 mL/min (>60); Glucose 118 mg/dL (80-110); HDL Cholesterol 40 mg/dL (40-60); HEMOLYSIS < 15 (0-50); LDL Cholesterol Calculated 103 mg/dL (<100); Potassium 4.5 mmol/L (3.4-5.1); Sodium 136 mmol/L (137-145); Total Protein 7.1 g/dL (6.3-8.2); Triglycerides 182 mg/dL (35-150)
[2023-06-01 09:29] LABS: TSH w/ Reflex to FT4 1.78 uIU/mL (0.47-4.68)
[2023-06-01 10:58] LABS: Creatinine Urine Random 64.8 mg/dL
[2023-06-01 11:04] LABS: Microalbumi Creatinin Ratio Ur 26.2 ug/mg CR (<30); Microalbumin Urine Random 1.7 mg/dL (0-1.6)
== END ==
LOC: LAB 06:56
PROVIDERS: PCP Registered Nurse Diabetes Educator; Referring Provider Registered Nurse Diabetes Educator; Visit Provider Registered Nurse Diabetes Educator
DX: R80.9 Proteinuria, unspecified (principal); E11.9 Type 2 diabetes mellitus without complications; E78.5 Hyperlipidemia, unspecified; E78.1 Pure hyperglyceridemia; I10 Essential (primary) hypertension
CPT/HCPCS: 36415; 80053; 80061; 82043; 82570; 83036; 84443; 85027

== ENCOUNTER 2024-01-25 15:40 | Emergency (ER) | payer MEDICARE, SELFPAY ==
[2024-01-25 16:03] VITALS: BP 171/84; PULSE 56; RESP 18; TEMP 36.7; O2SAT 99; BMI 31.3
--- NOTE | 2024-01-25 16:08 | DI.RAD.S_ITS ---
PROCEDURE: XR CHEST 1V INDICATIONS: chest pain TECHNIQUE: One view of the chest was acquired. COMPARISON: [facility], CR, XR CHEST 2V, 02/10/2023, 9:06. [facility], CR, XR CHEST 1V, 05/14/2020, 10:22. FINDINGS: Surgical changes and devices: ACDF. Lungs and pleura: Lungs are clear. No pleural effusions or pneumothorax. Mediastinum: Mediastinal contours appear normal. Heart size is normal. Bones and chest wall: No suspicious bony lesions. Overlying soft tissues appear unremarkable. IMPRESSION: No acute cardiopulmonary abnormality is seen. Dictated by: Brandon Sanchez M.D. on 01/25/2024 at 16:45 Approved by: Brandon Sanchez M.D. on 01/25/2024 at 16:46
--- NOTE | 2024-01-25 16:08 | EKG_ITS ---
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
[2024-01-25 16:37] LABS: Add Manual Diff / Slide Review NO; Basophils Absolute Auto 100 /uL (0-100); Basophils Percent Auto 0.5 % (0-2); Eosinophils Absolute Auto 0 /uL (0-450); Eosinophils Percent Auto 0.4 % (2-4); Hematocrit 40.6 % (41-53); Hemoglobin 14.1 g/dL (13.5-17.5); Lymphocytes Absolute Auto 1100 /uL (1100-4500); Lymphocytes Percent Auto 9.4 % (25-40); Mean Corpuscular HGB Conc 34.9 % (30-36); Mean Corpuscular Hemoglobin 32.4 PG (26-34); Mean Corpuscular Volume 93.1 fL (80-100); Monocytes Absolute Auto 700 /uL (0-900); Monocytes Percent Auto 5.6 % (3-14); Neutrophils Absolute Auto 9900 /uL (1500-7000); Neutrophils Percent Auto 84.1 % (50-75); Platelet Count 353 X10^3/uL (150-400); Red Blood Cell Count 4.36 X10^6/uL (4.5-5.9); Red Cell Distribution Width 12.5 % (11.6-14.8); White Blood Cell Count 11.8 X10^3/uL (4.5-11.0)
[2024-01-25 16:47] LABS: INR 1.1 (0.9-1.3); Prothrombin Time 12.4 SECONDS (9.4-12.5)
[2024-01-25 16:50] LABS: PTT Partial Thromboplastin Tim 36 SECONDS (25.1-36.5)
[2024-01-25 16:53] LABS: Alanine Aminotransferase 38 IU/L (<50); Albumin 4.5 g/dL (3.5-5.0); Albumin Globulin Ratio 1.3 (1.0-2.8); Alkaline Phosphatase 84 U/L (38-126); Aspartate Aminotransferase 37 IU/L (17-59); BUN Creatinine Ratio 22.1 (6-22); Blood Urea Nitrogen 27 mg/dL (9-20); Calcium 9.4 mg/dL (8.4-10.2); Carbon Dioxide 25 mmol/L (22-32); Chloride 100 mmol/L (98-107); Creatine Kinase 86 U/L (55-170); Estimated Glomerular Filt Rate 59 mL/min (>60); Globulin 3.4 g/dL (1.7-4.1); Glucose 122 mg/dL (80-110); HEMOLYSIS 16 (0-50); Lipase 94 U/L (23-300); Magnesium 1.2 mg/dL (1.6-2.3); Potassium 4.1 mmol/L (3.4-5.1); Sodium 132 mmol/L (137-145); Total Protein 7.9 g/dL (6.3-8.2)
[2024-01-25 17:04] LABS: NT-proBNP (BNP-Adult 18+) 173 pg/mL (<450); Troponin I < 0.012 ng/mL (0.01-0.034)
== END 2024-01-25 17:20 | disposition left against medical advice (07) ==
PROVIDERS: Emergency Provider Emergency Medicine; PCP Registered Nurse Diabetes Educator
DX: R07.9 Chest pain, unspecified (principal); R00.1 Bradycardia, unspecified; I44.0 Atrioventricular block, first degree; I45.10 Unspecified right bundle-branch block; R55 Syncope and collapse
CPT/HCPCS: 36415; 71045; 80053; 82550; 83690; 83735; 83880; 84484; 85025; 85610; 85730; 93005; 93010; 99283

== ENCOUNTER → 2024-03-02 09:20 | Outpatient (CLI) | payer MEDICARE, SELFPAY ==
[2024-03-02 09:54] LABS: Add Manual Diff / Slide Review NO; Basophils Absolute Auto 100 /uL (0-100); Basophils Percent Auto 0.7 % (0-2); Eosinophils Absolute Auto 200 /uL (0-450); Eosinophils Percent Auto 2.8 % (2-4); Hematocrit 38.4 % (41-53); Hemoglobin 13.7 g/dL (13.5-17.5); Lymphocytes Absolute Auto 2200 /uL (1100-4500); Lymphocytes Percent Auto 30.1 % (25-40); Mean Corpuscular HGB Conc 35.8 % (30-36); Mean Corpuscular Hemoglobin 33.3 PG (26-34); Monocytes Absolute Auto 800 /uL (0-900); Monocytes Percent Auto 11.4 % (3-14); Neutrophils Absolute Auto 4000 /uL (1500-7000); Platelet Count 342 X10^3/uL (150-400); Red Blood Cell Count 4.12 X10^6/uL (4.5-5.9); Red Cell Distribution Width 12.6 % (11.6-14.8); White Blood Cell Count 7.3 X10^3/uL (4.5-11.0)
[2024-03-02 10:12] LABS: Alanine Aminotransferase 33 IU/L (<50); Albumin 4.4 g/dL (3.5-5.0); Albumin Globulin Ratio 1.7 (1.0-2.8); Alkaline Phosphatase 81 U/L (38-126); Aspartate Aminotransferase 34 IU/L (17-59); BUN Creatinine Ratio 23.9 (6-22); Bilirubin Total 0.7 mg/dL (0.2-1.3); Blood Urea Nitrogen 32 mg/dL (9-20); Calcium 9.6 mg/dL (8.4-10.2); Carbon Dioxide 27 mmol/L (22-32); Chloride 103 mmol/L (98-107); Cholesterol 136 mg/dL (140-199); Estimated Glomerular Filt Rate 53 mL/min (>60); Globulin 2.6 g/dL (1.7-4.1); Glucose 95 mg/dL (80-110); HDL Cholesterol 45 mg/dL (40-60); HEMOLYSIS 25 (0-50); LDL Cholesterol Calculated 54 mg/dL (<100); Sodium 136 mmol/L (137-145); Triglycerides 185 mg/dL (35-150)
[2024-03-02 11:52] LABS: Appearance Urine UA CLEAR; Bilirubin Urine UA NEGATIVE (NEGATIVE); Color Urine UA YELLOW; Glucose Urine UA NEGATIVE (Negative); Ketones Urine UA NEGATIVE (NEGATIVE); Leukocyte Esterase Urine UA NEGATIVE (NEGATIVE); Nitrite Urine UA NEGATIVE (Negative); Occult Blood Urine UA NEGATIVE (Negative); Protein Urine UA NEGATIVE (Negative); Specific Gravity Urine UA 1.015 (1.000-1.035); Urobilinogen Urine UA 0.2 E.U./dL (0.2); pH Urine UA 5.5 (4.5-8.0)
[2024-03-02 12:04] LABS: Bacteria Urine None Seen; Culture Indicated Urine Cult Not Indicated; RBC Urine None Seen (0-5/HPF); Squamous Epithelial Cell Urine None Seen (0-5/HPF); Urine Volume 10mL (spun); WBC Urine None Seen (0-5/HPF)
[2024-03-02 12:13] LABS: Creatinine Urine Random 84.29 mg/dL
[2024-03-02 12:18] LABS: Microalbumin Urine Random 3.3 mg/dL (0-1.6)
== END ==
LOC: LAB 09:23
PROVIDERS: PCP Registered Nurse Diabetes Educator; Referring Provider Registered Nurse Diabetes Educator; Visit Provider Registered Nurse Diabetes Educator
DX: I10 Essential (primary) hypertension (principal); E11.9 Type 2 diabetes mellitus without complications; E78.5 Hyperlipidemia, unspecified; Z01.818 Encounter for other preprocedural examination; R80.9 Proteinuria, unspecified
CPT/HCPCS: 36415; 80053; 80061; 81001; 82043; 82570; 83036; 85025

== ENCOUNTER → 2024-03-04 16:09 | Outpatient (CLI) | payer MEDICARE, SELFPAY ==
[2024-03-04 17:16] LABS: BUN Creatinine Ratio 21.5 (6-22); Blood Urea Nitrogen 34 mg/dL (9-20); Carbon Dioxide 23 mmol/L (22-32); Chloride 100 mmol/L (98-107); Estimated Glomerular Filt Rate 43 mL/min (>60); Glucose 88 mg/dL (80-110); HEMOLYSIS < 15 (0-50); Potassium 4.1 mmol/L (3.4-5.1); Sodium 130 mmol/L (137-145)
== END ==
PROVIDERS: PCP Registered Nurse Diabetes Educator; Referring Provider Registered Nurse Diabetes Educator; Visit Provider Registered Nurse Diabetes Educator
DX: R79.89 Other specified abnormal findings of blood chemistry (principal)
CPT/HCPCS: 36415; 80048

== ENCOUNTER → 2024-04-19 08:24 | Outpatient (CLI) | payer MEDICARE, SELFPAY | PROVIDERS: PCP Registered Nurse Diabetes Educator; Visit Provider Student in an Organized Health Care Education/Training Program | DX: R35.0 Frequency of micturition (principal) | CPT/HCPCS: 87086 ==

== ENCOUNTER → 2024-04-22 07:00 | Outpatient (CLI) | payer MEDICARE, SELFPAY ==
[2024-04-22 08:31] LABS: BUN Creatinine Ratio 15.2 (6-22); Blood Urea Nitrogen 20 mg/dL (9-20); Calcium 9.9 mg/dL (8.4-10.2); Carbon Dioxide 25 mmol/L (22-32); Chloride 99 mmol/L (98-107); Estimated Glomerular Filt Rate 54 mL/min (>60); Glucose 127 mg/dL (80-110); HEMOLYSIS < 15 (0-50); Potassium 4.9 mmol/L (3.4-5.1); Sodium 135 mmol/L (137-145)
[2024-04-22 08:49] LABS: Creatinine Urine Random 69.22 mg/dL
[2024-04-22 08:53] LABS: Microalbumin Urine Random 3.4 mg/dL (0-1.6)
== END ==
PROVIDERS: PCP Registered Nurse Diabetes Educator; Referring Provider Registered Nurse Diabetes Educator; Visit Provider Registered Nurse Diabetes Educator
DX: I10 Essential (primary) hypertension (principal); R79.89 Other specified abnormal findings of blood chemistry; R80.9 Proteinuria, unspecified
CPT/HCPCS: 36415; 80048; 82043; 82570

== ENCOUNTER → 2024-05-04 07:25 | Outpatient (CLI) | payer MEDICARE, SELFPAY ==
--- NOTE | 2024-05-04 07:27 | DI.US.S_ITS ---
PROCEDURE: US RENAL COMPLETE INDICATIONS: eval, CKD, R flank pain TECHNIQUE: Real-time scanning was performed of the kidneys and bladder, with image documentation. COMPARISON: None. FINDINGS: Kidneys: Kidneys are normal in size. Right kidney measures 11.3 cm long; left kidney measures 11.9 cm long. Right renal cortical thickness is 1.1 cm; left renal cortical thickness is 1.8 cm. Renal cortical echotexture is increased. No hydronephrosis or nephrolithiasis. No suspicious solid mass lesions. Benign, anechoic left renal cysts. Largest measures 3.2 centimeter. Bladder: Pre-void bladder volume is 339 mL. Post-void residual is 300 mL. Pre-void images demonstrate no intraluminal masses or stones. On pre-void images, neither ureteral jets are noted with color Doppler interrogation. (Of note, ureteral jets may not be detectable in up to 25% of cases due to insufficient differences in specific gravity between ureteral and bladder urine). Miscellaneous: No free pelvic fluid. IMPRESSION: No hydronephrosis or sonographic evidence of nephrolithiasis. Increased renal cortical echogenicity, consistent with chronic parenchymal disease. Elevated postvoid residual of 300 milliliter. Patient reports difficulty voiding at hospital/doctor's office. Dictated by: Brandon Sanchez M.D. on 05/04/2024 at 11:14 Approved by: Brandon Sanchez M.D. on 05/04/2024 at 11:16
== END ==
PROVIDERS: PCP Registered Nurse Diabetes Educator; Referring Provider Registered Nurse Diabetes Educator; Visit Provider Registered Nurse Diabetes Educator
DX: N18.31 Chronic kidney disease, stage 3a (principal); R33.9 Retention of urine, unspecified; N28.1 Cyst of kidney, acquired
CPT/HCPCS: 76770

== ENCOUNTER → 2024-06-02 09:22 | Outpatient (CLI) | payer MEDICARE, SELFPAY ==
--- NOTE | 2024-06-02 09:23 | DI.CT.S_ITS ---
PROCEDURE: CT KNEE LEFT WITHOUT CON INDICATIONS: Acute pain of lt knee TECHNIQUE: Noncontrast 1-1.5 mm axial sections acquired from the mid-patella to the proximal tibia, with coronal and sagittal reformats. COMPARISON: [facility], CR, XR KNEE 1 OR 2 VIEWS LEFT, 03/29/2024, 15:31. [facility], CR, XR KNEE 1 OR 2 VIEWS LEFT, 04/12/2024, 12:44. [facility], CR, XR KNEE 3 VIEWS LEFT, 04/28/2024, 12:48. [facility], CR, XR KNEE 4+ VIEWS LEFT, 06/01/2024, 15:59. FINDINGS: Image quality: Excellent. Bones: There is a vertically oriented fracture involving the left medial tibial plateau as seen on plain film imaging earlier same day but absent on postoperative plain film imaging of the left knee 04/28/24. The degree of depression is estimated at approximately 5 mm, and there is very slight medial displacement of the fracture and the associated tibial component of the medial unicompartmental arthroplasty device. Soft tissues: A joint effusion without visualized lipid content is identified on sagittal re-formation imaging additional prepatellar soft tissue edema is present. IMPRESSION: Mildly depressed and minimally displaced medially vertically oriented fracture involving the medial tibial plateau of the left lower extremity, with included tibial component of the medial unicompartmental hemiarthroplasty previously performed. This fracture was not identified on postprocedural plain film imaging in early April of this year nor on the earlier postoperative plain film imaging 04/12/24 or immediately postoperatively 03/29/24. [id number] associated joint effusion, with prepatellar and parapatellar soft tissue swelling. Dictated by: Arjun Mccloud M.D. on 06/02/2024 at 10:20 Approved by: Arjun Mccloud M.D. on 06/02/2024 at 10:28
== END ==
PROVIDERS: PCP Registered Nurse Diabetes Educator; Referring Provider Student in an Organized Health Care Education/Training Program; Visit Provider Student in an Organized Health Care Education/Training Program
DX: S82.145A Nondisplaced bicondylar fracture of left tibia, initial encounter for closed fracture (principal); M97.12XA Periprosthetic fracture around internal prosthetic left knee joint, initial encounter; M25.562 Pain in left knee; M25.462 Effusion, left knee; M79.89 Other specified soft tissue disorders
CPT/HCPCS: 73700

== ENCOUNTER 2024-06-16 07:16 | Emergency (ER) | payer MEDICARE, SELFPAY ==
[2024-06-16 07:27] VITALS: BP 132/65; PULSE 65
[2024-06-16 07:30] VITALS: BP 119/59; PULSE 56; O2SAT 99
[2024-06-16 07:33] VITALS: BP 132/65; PULSE 58; RESP 16; TEMP 36.4; O2SAT 98; BMI 29.7
[2024-06-16 07:50] LABS: Add Manual Diff / Slide Review NO; Basophils Absolute Auto 100 /uL (0-100); Basophils Percent Auto 0.5 % (0-2); Eosinophils Absolute Auto 300 /uL (0-450); Eosinophils Percent Auto 1.7 % (2-4); Hematocrit 34.6 % (41-53); Hemoglobin 11.9 g/dL (13.5-17.5); Lymphocytes Absolute Auto 1700 /uL (1100-4500); Lymphocytes Percent Auto 10.7 % (25-40); Mean Corpuscular HGB Conc 34.3 % (30-36); Mean Corpuscular Hemoglobin 31.8 PG (26-34); Mean Corpuscular Volume 92.6 fL (80-100); Monocytes Absolute Auto 1300 /uL (0-900); Monocytes Percent Auto 8.5 % (3-14); Neutrophils Absolute Auto 12400 /uL (1500-7000); Neutrophils Percent Auto 78.6 % (50-75); Platelet Count 460 X10^3/uL (150-400); Red Blood Cell Count 3.74 X10^6/uL (4.5-5.9); Red Cell Distribution Width 12.6 % (11.6-14.8); White Blood Cell Count 15.8 X10^3/uL (4.5-11.0)
--- NOTE | 2024-06-16 07:54 | ED_ITS ---
HPI - Nausea/Vomiting/Diarrhea General Chief complaint: Nausea/Vomiting/Diarrhea Stated complaint: Per patient, Diverticulitis flare up Time Seen by Provider: 06/16/24 07:36 Source: patient Mode of arrival: Ambulatory History of Present Illness HPI Narrative: Patient here for left lower quadrant pain constant for the past 5 days. Does not radiate. Sharp pain. Worse with palpation. No black or bloody stools. Has had decrease in urination but no dysuria. This started with the abdominal pain as well. Patient has history of diverticulitis and states feels about the same. No admissions for diverticulitis or surgeries for it in the past. Patient in no distress. Related Data Home Medications Medication Instructions Recorded Confirmed multivitamin (Multiple Vitamins 1 tab PO QDAY ##0 09/03/10 05/25/24 tablet) omeprazole 20 mg capsule,delayed 20 mg PO QDAY ##0 10/06/16 05/25/24 release oxycodone 5 mg tablet 5 mg PO Q6H PRN moderate pain 04/25/24 05/25/24 sennosides 8.6 mg-docusate sodium 1 tab PO DAILY PRN 05/18/24 05/25/24 50 mg tablet Previous Rx's Medication Instructions Recorded tamsulosin 0.4 mg capsule 0.4 mg PO DAILY #90 caps 05/18/24 amlodipine 5 mg tablet 5 mg PO BID #180 tabs 05/25/24 atenolol 50 mg tablet 50 mg PO QAM #90 tabs 05/25/24 atorvastatin 20 mg tablet 20 mg PO DAILY #90 tabs 05/25/24 losartan 100 mg tablet 100 mg PO DAILY #90 tabs 05/25/24 oxycodone 5 mg tablet 5 mg PO Q6H PRN pain, severe #20 05/25/24 tabs amoxicillin 875 mg-potassium 1 tab PO BID #20 tabs 06/16/24 clavulanate 125 mg tablet Allergies Allergy/AdvReac Type Severity Reaction Status Date / Time lisinopril AdvReac Intermediate Cough Verified 06/16/24 07:32 Review of Systems Review of Systems Narrative: GENERAL: Negative chills, fatigue, malaise, fever, sweats. HEENT: Negative sinus pain, ear pain, sore throat RESPIRATORY: Negative dyspnea, cough CARDIOVASCULAR: Negative chest pain, palpitations GASTROINTESTINAL: Negative vomiting, nausea, positive abdominal pain : Negative dysuria, frequency, hematuria, positive decreased urine output MUSCULOSKELETAL: Negative muscle or bony pain SKIN: Negative rash, skin lesions NEUROLOGIC: Negative weakness, numbness ROS Unobtainable: All systems reviewed & are unremarkable except as noted in HPI and below Patient History Medical History CKD stage 3a, GFR 45-59 ml/min Microalbuminuria Right bundle branch block Dyslipidemia Diabetes mellitus type 2, diet-controlled Essential (primary) hypertension (02/26/15) Surgical History Status post left partial knee replacement Status post knee surgery History of hip replacement History of hip replacement Family History Child Thyroid cancer Social History second hand exposure: No alcohol intake: current substance use type: does not use Smoking Status: Unknown if ever smoked alcohol intake frequency: 0-2 drinks per day Exam Narrative Exam Narrative: GENERAL: in no distress, not toxic not dyspneic HEAD: Normocephalic. EYES: Pupils equal round ENT: Mucous membranes moist. NECK: Trachea midline. CARDIOVASCULAR: Regular rate and rhythm RESPIRATORY: Clear to auscultation. Breath sounds equal bilaterally. No wheezes, rales, or rhonchi. GASTROINTESTINAL: Abdomen soft, reproducible left lower quadrant tenderness no guarding or rebound no peritoneal signs no pain out of portion exam. Bowel sounds are present. EXTREMITIES: No gross deformities. BACK: No flank tenderness. NEURO: AOx4. Clear speech SKIN: Warm and dry PSYCH: Not anxious, is cooperative Initial Vital Signs Initial Vital Signs: Vital Signs Pulse Rate 65 06/16/24 07:27 Blood Pressure 132/65 06/16/24 07:27 Course Orders Ordered: Discontinued Medications Amoxicillin/Clavulanate Potassium (Amoxicillin/Clav 875/125 Mg) 1 tab PO NOW ONE Stop: 06/16/24 09:14 Last Admin: 06/16/24 09:26 Dose: 1 tab Documented By: SPF Sodium Chloride (Normal Saline 0.9%) 1,000 mls @ 1,000 mls/hr IV BOLUS ONE Stop: 06/16/24 08:52 Last Infusion: 06/16/24 09:25 Dose: Infused Documented By: Admin: 06/16/24 08:05 Dose: 1,000 mls/hr Documented By: CHARLIE Vital Signs Vital signs: Vital Signs - 8 hr 06/16/24 07:27 06/16/24 07:27 06/16/24 07:30 Temperature Pulse Rate 65 Respiratory Rate Blood Pressure 132/65 119/59 L Pulse Oximetry Oxygen Delivery Method 06/16/24 07:30 06/16/24 07:33 06/16/24 08:00 Temperature 97.5 F L Pulse Rate 56 L 58 L 54 L Respiratory Rate 16 Blood Pressure 132/65 Pulse Oximetry 99 98 98 Oxygen Delivery Method Room Air 06/16/24 09:29 06/16/24 09:29 Temperature Pulse Rate 53 L Respiratory Rate Blood Pressure 139/65 Pulse Oximetry 97 Oxygen Delivery Method Room Air MDM - Nausea/Vomiting/Diarrhea Lab Data 06/16/24 07:40 06/16/24 07:40 Labs: Lab Results 06/16/24 06/16/24 06/16/24 Range/Units 07:40 07:40 07:40 WBC 15.8 H (4.5-11.0) X10^3/uL RBC 3.74 L (4.5-5.9) X10^6/uL Hgb 11.9 L (13.5-17.5) g/dL Hct 34.6 L (41-53) % MCV 92.6 (80-100) fL MCH 31.8 (26-34) PG MCHC 34.3 (30-36) % RDW 12.6 (11.6-14.8) % Plt Count 460 H (150-400) X10^3/uL Neut % (Auto) 78.6 H (50-75) % Lymph % (Auto) 10.7 L (25-40) % [place] % (Auto) 8.5 (3-14) % Eos % (Auto) 1.7 L (2-4) % Baso % (Auto) 0.5 (0-2) % Neut # (Auto) 07405 H (8542-0061) /uL Lymph # (Auto) 1700 (3912-2388) /uL [place] # (Auto) 1300 H (0-900) /uL Eos # (Auto) 300 (0-450) /uL Baso # (Auto) 100 (0-100) /uL Sodium Cancelled 132 L Potassium Cancelled 3.5 Chloride Cancelled Carbon Dioxide BUN Creatinine Estimated GFR BUN/Creatinine Ratio Glucose Calcium Total Bilirubin (0.2-1.3) mg/dL AST (17-59) IU/L ALT (<50) IU/L Alkaline Phosphatase (38-126) U/L Total Protein (6.3-8.2) g/dL Albumin (3.5-5.0) g/dL Globulin (1.7-4.1) g/dL Albumin/Globulin Ratio (1.0-2.8) Stl C. cayetanensis PCR (Not Detect) Stool Rotavirus (PCR) (Not Detect) Stool Adenovirus (PCR) (Not Detect) Stool Astrovirus (PCR) (Not Detect) Stool Cryptosporidium PCR (Not Detect) Stl E.coli Shiga Tox PCR (Not Detect) St Sh/Enteroin Ecoli PCR (Not Detect) Stl Enterotoxigenic E PCR (Not Detect) Stool EPEC (PCR) (Not Detect) Stl E. histolytica PCR (Not Detect) Stool Giardia Lamblia PCR (Not Detect) Stool Sapovirus (PCR) (Not Detect) Stl P. shigelloides PCR (Not Detect) St Y.enterocolitica PCR (Not Detect) Stool Vibrio (PCR) (Not Detect) Stl Vibrio cholerae PCR (Not Detect) Stl Enteroaggr Ecoli PCR (Not Detect) Stl Norovirus GI/GII PCR (Not Detect) Campylobacter (PCR) (Not Detect) C. difficile Tox (PCR) (Not Detect) Salmonella (PCR) (Not Detect) 06/16/24 06/16/24 06/16/24 Range/Units 07:40 07:40 07:40 WBC (4.5-11.0) X10^3/uL RBC (4.5-5.9) X10^6/uL Hgb (13.5-17.5) g/dL Hct (41-53) % MCV (80-100) fL MCH (26-34) PG MCHC (30-36) % RDW (11.6-14.8) % Plt Count (150-400) X10^3/uL Neut % (Auto) (50-75) % Lymph % (Auto) (25-40) % [place] % (Auto) (3-14) % Eos % (Auto) (2-4) % Baso % (Auto) (0-2) % Neut # (Auto) (9636-9475) /uL Lymph # (Auto) (3226-1745) /uL [place] # (Auto) (0-900) /uL Eos # (Auto) (0-450) /uL Baso # (Auto) (0-100) /uL Sodium Potassium Chloride 101 Carbon Dioxide Cancelled 20 L BUN Cancelled 26 H Creatinine Cancelled Estimated GFR BUN/Creatinine Ratio Glucose Calcium Total Bilirubin (0.2-1.3) mg/dL AST (17-59) IU/L ALT (<50) IU/L Alkaline Phosphatase (38-126) U/L Total Protein (6.3-8.2) g/dL Albumin (3.5-5.0) g/dL Globulin (1.7-4.1) g/dL Albumin/Globulin Ratio (1.0-2.8) Stl C. cayetanensis PCR (Not Detect) Stool Rotavirus (PCR) (Not Detect) Stool Adenovirus (PCR) (Not Detect) Stool Astrovirus (PCR) (Not Detect) Stool Cryptosporidium PCR (Not Detect) Stl E.coli Shiga Tox PCR (Not Detect) St Sh/Enteroin Ecoli PCR (Not Detect) Stl Enterotoxigenic E PCR (Not Detect) Stool EPEC (PCR) (Not Detect) Stl E. histolytica PCR (Not Detect) Stool Giardia Lamblia PCR (Not Detect) Stool Sapovirus (PCR) (Not Detect) Stl P. shigelloides PCR (Not Detect) St Y.enterocolitica PCR (Not Detect) Stool Vibrio (PCR) (Not Detect) Stl Vibrio cholerae PCR (Not Detect) Stl Enteroaggr Ecoli PCR (Not Detect) Stl Norovirus GI/GII PCR (Not Detect) Campylobacter (PCR) (Not Detect) C. difficile Tox (PCR) (Not Detect) Salmonella (PCR) (Not Detect) 06/16/24 06/16/24 06/16/24 Range/Units 07:40 07:40 07:40 WBC (4.5-11.0) X10^3/uL RBC (4.5-5.9) X10^6/uL Hgb (13.5-17.5) g/dL Hct (41-53) % MCV (80-100) fL MCH (26-34) PG MCHC (30-36) % RDW (11.6-14.8) % Plt Count (150-400) X10^3/uL Neut % (Auto) (50-75) % Lymph % (Auto) (25-40) % [place] % (Auto) (3-14) % Eos % (Auto) (2-4) % Baso % (Auto) (0-2) % Neut # (Auto) (0821-2348) /uL Lymph # (Auto) (4790-3389) /uL [place] # (Auto) (0-900) /uL Eos # (Auto) (0-450) /uL Baso # (Auto) (0-100) /uL Sodium Potassium Chloride Carbon Dioxide BUN Creatinine 1.35 H Estimated GFR Cancelled 52 L BUN/Creatinine Ratio Cancelled 19.3 Glucose Cancelled Calcium Total Bilirubin (0.2-1.3) mg/dL AST (17-59) IU/L ALT (<50) IU/L Alkaline Phosphatase (38-126) U/L Total Protein (6.3-8.2) g/dL Albumin (3.5-5.0) g/dL Globulin (1.7-4.1) g/dL Albumin/Globulin Ratio (1.0-2.8) Stl C. cayetanensis PCR (Not Detect) Stool Rotavirus (PCR) (Not Detect) Stool Adenovirus (PCR) (Not Detect) Stool Astrovirus (PCR) (Not Detect) Stool Cryptosporidium PCR (Not Detect) Stl E.coli Shiga Tox PCR (Not Detect) St Sh/Enteroin Ecoli PCR (Not Detect) Stl Enterotoxigenic E PCR (Not Detect) Stool EPEC (PCR) (Not Detect) Stl E. histolytica PCR (Not Detect) Stool Giardia Lamblia PCR (Not Detect) Stool Sapovirus (PCR) (Not Detect) Stl P. shigelloides PCR (Not Detect) St Y.enterocolitica PCR (Not Detect) Stool Vibrio (PCR) (Not Detect) Stl Vibrio cholerae PCR (Not Detect) Stl Enteroaggr Ecoli PCR (Not Detect) Stl Norovirus GI/GII PCR (Not Detect) Campylobacter (PCR) (Not Detect) C. difficile Tox (PCR) (Not Detect) Salmonella (PCR) (Not Detect) 06/16/24 06/16/24 06/16/24 Range/Units 07:40 07:40 08:44 WBC (4.5-11.0) X10^3/uL RBC (4.5-5.9) X10^6/uL Hgb (13.5-17.5) g/dL Hct (41-53) % MCV (80-100) fL MCH (26-34) PG MCHC (30-36) % RDW (11.6-14.8) % Plt Count (150-400) X10^3/uL Neut % (Auto) (50-75) % Lymph % (Auto) (25-40) % [place] % (Auto) (3-14) % Eos % (Auto) (2-4) % Baso % (Auto) (0-2) % Neut # (Auto) (1062-5541) /uL Lymph # (Auto) (9990-4237) /uL [place] # (Auto) (0-900) /uL Eos # (Auto) (0-450) /uL Baso # (Auto) (0-100) /uL Sodium Potassium Chloride Carbon Dioxide BUN Creatinine Estimated GFR BUN/Creatinine Ratio Glucose 138 H Calcium Cancelled 8.8 Total Bilirubin 0.7 (0.2-1.3) mg/dL AST 45 (17-59) IU/L ALT 40 (<50) IU/L Alkaline Phosphatase 101 (38-126) U/L Total Protein 6.9 (6.3-8.2) g/dL Albumin 3.9 (3.5-5.0) g/dL Globulin 3.0 (1.7-4.1) g/dL Albumin/Globulin Ratio 1.3 (1.0-2.8) Stl C. cayetanensis PCR Not detected (Not Detect) Stool Rotavirus (PCR) Not detected (Not Detect) Stool Adenovirus (PCR) Not detected (Not Detect) Stool Astrovirus (PCR) Not detected (Not Detect) Stool Cryptosporidium PCR Not detected (Not Detect) Stl E.coli Shiga Tox PCR Not detected (Not Detect) St Sh/Enteroin Ecoli PCR Not detected (Not Detect) Stl Enterotoxigenic E PCR Not detected (Not Detect) Stool EPEC (PCR) Not detected (Not Detect) Stl E. histolytica PCR Not detected (Not Detect) Stool Giardia Lamblia PCR Not detected (Not Detect) Stool Sapovirus (PCR) Not detected (Not Detect) Stl P. shigelloides PCR Not detected (Not Detect) St Y.enterocolitica PCR Not detected (Not Detect) Stool Vibrio (PCR) Not detected (Not Detect) Stl Vibrio cholerae PCR Not detected (Not Detect) Stl Enteroaggr Ecoli PCR Not detected (Not Detect) Stl Norovirus GI/GII PCR Not detected (Not Detect) Campylobacter (PCR) Not detected (Not Detect) C. difficile Tox (PCR) Detected H (Not Detect) Salmonella (PCR) Not detected (Not Detect) Urine Dip Bedside Urine Glucose Negative Bedside Urine Bilirubin - Negative Bedside Urine Ketone - Negative Urine Specific [place] 1.010 Bedside Urine Occult Blood - Negative Bedside Urine pH 6.0 Bedside Urine Protein - Negative Bedside Urine Urobilinogen - Negative Bedside Urine Nitrite - Negative Bedside Urine Leukocytes - Negative Esterase Imaging Data CT scan - abdomen/pelvis: Radiologist's Impression: [place] [address] CT Scan Report Signed Patient: Laurent Ashraf MR#: [id number] : 1940 Acct:[id number] Age/Sex: 83 / M Date of Service: 06/16/24 Loc: ED Accession Number: [id number] Procedure: CT abdomen pelvis w con Ordering Provider: Sudarshan Armando MD PROCEDURE: CT ABDOMEN PELVIS W CON INDICATIONS: IV contrast only/left lower quadrant pain TECHNIQUE: After the administration of intravenous contrast, axial sections acquired from the lung bases to the pubic symphysis. Coronal and sagittal reformats were performed. For radiation dose reduction, the following was used: automated exposure control, adjustment of mA and/or kV according to patient size. COMPARISON: [facility], CT, ABDOMEN/PELVIS WITH CONTRAST, 10/22/2016, 12:13. FINDINGS: Image quality: Diagnostic. Lower Chest: No significant findings. ABDOMEN: Liver: No solid mass. Gallbladder: No radiopaque gallstones or wall thickening. Biliary ducts: No biliary dilation. Pancreas: No ductal dilation. Spleen: Size is within normal limits. Adrenal Glands: No adrenal nodules. Kidneys and Ureters: No hydronephrosis. No solid mass. No complex renal cystic lesion which requires follow up. Stomach and Bowel: Impressive colitis. The there is abnormal wall thickening and mild thumbprinting involving the cecum and ascending colon. There is relative sparing of the transverse colon. There is diffuse wall thickening and inflammation in the surrounding fat involving the descending colon. There is impressive wall thickening and inflammatory change in the adjacent fat of the sigmoid and marked thickening and edema of the rectum. There underlying prominent diffuse colonic diverticuli. The appearance of the findings is consistent with infectious versus inflammatory colitis. Small bowel is spared. Normal appendix. Peritoneum: No abnormal intraperitoneal fluid. No free air. Ventral Wall: No significant ventral hernia. Abdominal Nodes: No retroperitoneal or mesenteric adenopathy by size criteria. Vessels: Aorta and inferior vena cava are normal in size. PELVIS: Pelvic Organs: Prostatomegaly. Bladder: Mild bladder trabeculations consistent with bladder outlet obstruction. Pelvic Nodes: No enlarged lymph nodes. Miscellaneous: Bilateral fat containing inguinal hernias are seen. Bones: No aggressive osseous abnormality. Bilateral total hip arthroplasties. Chronic right ileo psoas fluid collection, present dating back to the 2017 study, likely representing a large ganglion cyst off related to the right hip joint. There is extensive metal artifact in the lower pelvis. Diffuse lumbar degenerative change. IMPRESSION: 1. There is an impressive diffuse inflammatory process involving the entire colon with relative sparing of the transverse colon. Consider infectious versus inflammatory colitis. 2. There is extensive diffuse diverticulosis. 3. Chronic fluid collection in the right ileo psoas muscle likely emanates from the right hip joint, present dating back to at least 2017. Dictated by: Saeed Hayes M.D. on 06/16/2024 at 8:18 Approved by: Saeed Hayes M.D. on 06/16/2024 at 8:26 MDM Narrative Medical decision making narrative: Patient here for left lower quadrant pain constant for the past 5 days. Does not radiate. Sharp pain. Worse with palpation. No black or bloody stools. Has had decrease in urination but no dysuria. This started with the abdominal pain as well. Patient has history of diverticulitis and states feels about the same. No admissions for diverticulitis or surgeries for it in the past. Patient in no distress. After history and exam, CBC CMP urinalysis CT abdomen pelvis normal saline. Patient does not want anything for pain at this time. No nausea. [facility] Medical records reviewed: No recent visit for this complaint Differential considered: Includes but not limited to diverticulitis cystitis kidney stone pyelonephritis colitis diverticulosis bowel obstruction Lab Test results independently reviewed as above. Pertinent findings: WBC 15.8 hemoglobin 11.9 sodium 132 potassium 3.5 BUN 26 creatinine 1.35 GFR 52 Imaging studies independently reviewed: CT abdomen pelvis, colitis, no abscess Consultations: 9:12 a.m.. Spoke with general surgery, Dr. Cruz, at this time patient can be managed outpatient. Would go monotherapy Augmentin since patient's renal function slows chronic kidney disease. Can follow up in office for outpatient colonoscopy. Re-evaluations: 9:28 a.m.. Reviewed results with patient. Pain is controlled. Does not want thing for pain. Agrees with treatment by antibiotics and follow up with Dr. Cruz. Return precautions reviewed. He desires discharge home. Patient denies any diarrhea. Unable to provide stool sample. Discussion: Appropriate for discharge home. Exam is reassuring. Renal function noted however patient is at baseline. IV fluids were given now after CT imaging. Antibiotics have been started. Return precautions reviewed with patient. General surgery was consulted. He desires discharge home. Diagnosis: Diverticulitis/colitis Addendum 10:47 a.m.. Patient has already been discharge this morning. GI panel returned positive for C diff toxin but they EIA takes 2-3 days to return according to microbiology laboratory staff. I re-contacted Dr. Cruz, who would like hospitalist to be contacted. I spoke with Dr. Amanuel Chauhan, hospitalist, recommends cancelling Augmentin and starting vancomycin 125 mg by mouth 4 times a day for 10 days. I did speak with patient by phone that I am cancelling the Augmentin and the GI panel is likely C diff as he has been on antibiotics in the past 2 weeks for surgery on his knee. I did speak with safely pharmacist, we canceled the Augmentin and have prescribed vancomycin. Return precautions reviewed with patient.. Disposition does not change. We will try outpatient management with vancomycin for colitis/C diff. patient states he has been keeping well hydrated. He has not had very much diarrhea he states. Discharge Plan Departure Patient Disposition: Home Clinical Impression: Colitis Instructions: DI for Diverticulitis, DI for Colitis Activity Restrictions/Additional Instructions: Your exam and laboratory studies are reassuring. General surgery was contacted today. Dr. Cruz would like to see you in the office next week for re- evaluation. And possibly scheduled for colonoscopy. Antibiotics have been started here, prescription has been sent to your pharmacy to continue. May continue Tylenol for pain as you desired. Keep well hydrated. Return if worse if any questions or concerns. You are being treated for diverticulitis, CT scan does show colitis. Return if worse if any questions or concerns Prescriptions: New amoxicillin-pot clavulanate 875-125 mg tablet 1 tab PO BID Qty: 20 0RF No Action multivitamin [Multiple Vitamins] 1 EACH tablet 1 tab PO QDAY Qty: 0 omeprazole 20 MG capsule,delayed release(DR/EC) 20 mg PO QDAY Qty: 0 atenolol 50 mg tablet 50 mg PO QAM Qty: 90 3RF atorvastatin 20 mg tablet 20 mg PO DAILY Qty: 90 3RF losartan 100 mg tablet 100 mg PO DAILY Qty: 90 3RF amlodipine 5 mg tablet 5 mg PO BID Qty: 180 3RF oxycodone 5 mg tablet 5 mg PO Q6H PRN (Reason: pain, severe) Qty: 20 0RF oxycodone 5 mg tablet 5 mg PO Q6H PRN (Reason: moderate pain) sennosides-docusate sodium 8.6-50 mg tablet 1 tab PO DAILY PRN tamsulosin 0.4 mg capsule 0.4 mg PO DAILY Qty: 90 0RF Referrals: Junior Cruz MD [Physician] - Niko Childress ARNP [Primary Care Provider] - Stand Alone Forms: Patient Portal/API/Survey
[2024-06-16 08:00] VITALS: PULSE 54; O2SAT 98
[2024-06-16] MEDS: SODIUM CHLORIDE 0.9% 1,000 ML 1000 ML IV (08:05)
[2024-06-16 09:08] LABS: Alanine Aminotransferase 40 IU/L (<50); Albumin 3.9 g/dL (3.5-5.0); Albumin Globulin Ratio 1.3 (1.0-2.8); Alkaline Phosphatase 101 U/L (38-126); Aspartate Aminotransferase 45 IU/L (17-59); BUN Creatinine Ratio 19.3 (6-22); Bilirubin Total 0.7 mg/dL (0.2-1.3); Blood Urea Nitrogen 26 mg/dL (9-20); Calcium 8.8 mg/dL (8.4-10.2); Carbon Dioxide 20 mmol/L (22-32); Chloride 101 mmol/L (98-107); Estimated Glomerular Filt Rate 52 mL/min (>60); Glucose 138 mg/dL (70-99); HEMOLYSIS 16 (0-50); Potassium 3.5 mmol/L (3.4-5.1); Sodium 132 mmol/L (137-145); Total Protein 6.9 g/dL (6.3-8.2)
[2024-06-16] MEDS: AMOXICILLIN/CLAV 875/125 MG 1 TAB PO (09:26)
[2024-06-16 09:29] VITALS: BP 139/65; PULSE 53; O2SAT 97
[2024-06-16 10:14] LABS: Adenovirus F 40/41 Not Detected (Not Detect); Astrovirus Not Detected (Not Detect); Campylobacter Not Detected (Not Detect); Clostridium difficile toxin AB Detected (Not Detect); Cryptosporidium Not Detected (Not Detect); Cyclospora cayetanensis Not Detected (Not Detect); Entamoeba histolytica Not Detected (Not Detect); Enteroaggregative E.coli Not Detected (Not Detect); Enteropathogenic E.coli Not Detected (Not Detect); Enterotoxigenic E.coli It/st Not Detected (Not Detect); Giardia lamblia Not Detected (Not Detect); Norovirus GI/GII Not Detected (Not Detect); Plesiomonsa shigelloides Not Detected (Not Detect); Rotavirus A Not Detected (Not Detect); Salmonella Not Detected (Not Detect); Sapovirus Not Detected (Not Detect); Shiga-like toxin-prod E.coli Not Detected (Not Detect); Shigella/Enteroinvasive E.coli Not Detected (Not Detect); Vibrio Not Detected (Not Detect); Vibrio cholerae Not Detected (Not Detect); Yersinia enterocolitica Not Detected (Not Detect)
[2024-06-17 12:40] LABS: C difficie Toxins A and B, EIA Negative (Negative)
== END 2024-06-16 09:44 | disposition home or self-care (01) ==
PROVIDERS: Emergency Provider Emergency Medicine; PCP Registered Nurse Diabetes Educator
DX: K52.9 Noninfective gastroenteritis and colitis, unspecified (principal)
CPT/HCPCS: 74177; 80053; 81003; 85025; 87324; 87507; 96360; 99284; Q9967

== ENCOUNTER → 2025-02-09 12:29 | Outpatient (CLI) | payer MEDICARE, SELFPAY | PROVIDERS: Family Provider Registered Nurse Diabetes Educator; PCP Registered Nurse Diabetes Educator; Referring Provider Physician Assistant Surgical; Visit Provider Physician Assistant Surgical | DX: M79.601 Pain in right arm (principal); M79.602 Pain in left arm; R20.2 Paresthesia of skin | CPT/HCPCS: 95886; 95911 ==